=== PATIENT | female | born 1950 | race Caucasian/White ===

== ENCOUNTER → 2021-08-24 | Outpatient (CLI) | payer MEDICARE, OTHER | LOC: KOH-I 10:19 | DX: R74.8 Abnormal levels of other serum enzymes (principal) | CPT/HCPCS: 76705 ==

== ENCOUNTER 2021-09-17 12:04 | Emergency (ER) | payer MEDICARE, OTHER ==
[2021-09-17 13:46] LABS: HEMOGLOBIN 12.5 gm/dl (12.3-15.3); RED BLOOD COUNT 3.93 M/UL (4.00-5.10); WHITE BLOOD COUNT 14.2 K/UL (4.5-11.0)
== END 2021-09-17 16:20 | disposition home or self-care (01) ==
LOC: ER1 12:04
PROVIDERS: Nurse Practitioner
DX: S43.014A Anterior dislocation of right humerus, initial encounter (principal); S43.034A Inferior dislocation of right humerus, initial encounter; I12.9 Hypertensive chronic kidney disease with stage 1 through stage 4 chronic kidney disease, or unspecified chronic kidney disease; N18.9 Chronic kidney disease, unspecified; W01.0XXA Fall on same level from slipping, tripping and stumbling without subsequent striking against object, initial encounter; Y92.009 Unspecified place in unspecified non-institutional (private) residence as the place of occurrence of the external cause
CPT/HCPCS: 23650; 73030; 73060; 80053; 85025; 93005; 96374; 96375; 99284; J2270; J2405; J2704

== ENCOUNTER → 2021-10-04 | Outpatient (CLI) | payer MEDICARE, OTHER | LOC: HEART 5 09-30 11:00 | DX: R07.9 Chest pain, unspecified (principal); I08.3 Combined rheumatic disorders of mitral, aortic and tricuspid valves ==

== ENCOUNTER → 2021-11-18 | Outpatient (CLI) | payer MEDICARE, OTHER | LOC: KOH-I 11-09 14:30 | DX: M75.121 Complete rotator cuff tear or rupture of right shoulder, not specified as traumatic (principal) | CPT/HCPCS: 73221 ==

== ENCOUNTER → 2022-01-27 | Outpatient (CLI) | payer MEDICARE, OTHER | LOC: KOH-I 08:45 | DX: R79.89 Other specified abnormal findings of blood chemistry (principal); K76.89 Other specified diseases of liver | CPT/HCPCS: 76705 ==